=== PATIENT | female | born 1940 | race Caucasian/White ===

== ENCOUNTER → 2017-08-09 | Day surgery (SDC) | payer MEDICARE, BC ==
[2017-08-09 07:20] VITALS: RESP 16; BMI 27.4
--- NOTE | 2017-08-09 08:34 | PCN ---
PROCEDURE NOTE DATE OF SERVICE: 08/09/2017 PREPROCEDURE DIAGNOSIS: Left breast mammographic abnormality, located in the lateral mid breast. PROCEDURE: Stereotactic core biopsy. SURGEON: Val Seo MD ANESTHESIA: 1% lidocaine. INDICATIONS: The patient is a 77-year-old white female who underwent a bilateral mammogram and was noted to have a lesion in the left breast in the lateral mid portion of the breast. The patient on physical examination had no supraclavicular, cervical, axillary adenopathy of concern. Multiple positional exam of each breast, no dominant mass or nodules of concern. PROCEDURE: She was placed on the stereotactic table and the lesion was approached from lateral to medial. After this was localized and stereo coordinates were obtained, the skin was prepped using Betadine and 1% lidocaine was used to anesthetize the area of concern. A vacuum assisted 9-gauge needle was driven to the correct coordinates. Multiple core biopsies were then obtained of the area of concern. No microcalcifications were in the specimen and therefore radiograph of the specimen was not obtained. Following procuring of the specimen, a secure raul clip was placed. Radiograph was performed which confirmed the correct location of the clip. It should be noted that pre-fire and post-fire films were obtained prior to obtaining the sample. The specimen was sent to pathology. The patient was given an appointment to follow up with Dr. Pollard as an outpatient. The patient tolerated the procedure in stable condition. MMODL / IJN: [id number] /
[2017-08-09 11:17] VITALS: BP 133/78; PULSE 65; TEMP 97.9
--- NOTE | 2017-08-09 16:49 | MM ---
EXAMINATION TYPE: MG stereo VAD BX LT DATE OF EXAM: 08/09/2017 COMPARISON: 07/12/2017 and 07/27/2017 CLINICAL HISTORY: 77-year-old female abnormal mammogram, referred for stereotactic core needle biopsy for focal asymmetry. TECHNIQUE: Stereotactic guided core biopsy of the left breast. FINDINGS: The procedure of stereotactic guided core biopsy was explained to the patient. Benefits, a lternatives, and risks were discussed. An informed consent was then obtained. The [facility] pathway for biopsy was chosen. [facility] pathway was a lateral approach. I performed t he localization, then surgeon, Dr. Atul Perez performed the remainder of the procedure. A vacuum ass isted biopsy gun was used to obtain multiple core samples. The patient tolerated the procedure well without any immediate complication. The patient was kept in the radiology department for short stay after the procedure and then discharged home in stable condi tion. Specimen mammograms are not obtained as the target lesion was a focal asymmetry. Post biopsy mammogra m shows the clip to appear in satisfactory position relative to the targeted area of concern on the p reprocedure images. IMPRESSION: SUCCESSFUL, UNCOMPLICATED STEREOTACTIC GUIDED CORE BIOPSY OF 3:00 LEFT BREAST FOCAL ASYMMETRY; FULL P ATHOLOGY RESULTS TO FOLLOW.
== END ==
LOC: RADMAMWWP 06:54
PROVIDERS: ATTEND Surgery
DX: C50.912 Malignant neoplasm of unspecified site of left female breast (principal); Z88.0 Allergy status to penicillin
CPT/HCPCS: 88305; 88341; 88342

== ENCOUNTER → 2017-10-25 | Outpatient (CLI) | payer MEDICARE, BC ==
--- NOTE | 2017-10-25 12:24 | BD ---
EXAMINATION TYPE: MG DEXA axial skeleton. DATE OF EXAM: 10/25/2017 CLINICAL HISTORY: Height: 63 inches Weight: 155 FRAX RISK QUESTIONS: Alcohol (3 or more units per day): no Family History (Parent hip fracture): no Glucocorticoids (More than 3mos): no (Ex: prednisone, prednisolone, methylprednisolone, dexamethasone, and hydrocortisone). History of Fracture in Adulthood: no Secondary Osteoporosis: 1. Type 1 Diabetes: no 2. Hyperthyroidism: no 3. Menopause before 45: no 4. Malnutrition: no 5. Chronic liver disease: no Rheumatoid Arthritis: no Current Tobacco Use: no RISK FACTORS HISTORY OF: Family History of Osteoporosis: undocumented Active: yes Diet low in dairy products/other sources of calcium: dairy allergy Postmenopausal woman: yes Take estrogen and/or progesterone medications: not now How lon years on hormonal contraceptives; over 5 years using hormones Lost more than 2 inches in height since high school: no Frequent falls: no Poor Health: recent breast CA Hyperparathyroidism: no Adrenal Insufficiency: no MEDICATIONS: Prednisone or other steroids: no Thyroid Medications: no Osteoporosis Medications: no Additional Medications: generic antineoplastic (2 weeks) Additional History: breast CA 2017 EXAM MEASUREMENTS: Bone mineral densitometry was performed using the [employer]. Bone mineral density as measured about the Lumbar spine is: ----- L1-L4(G/cm2): 1.126 T Score Values are as follows: ----- L2: -0.7 ----- L3: 0.0 ----- L4: 0.0 ----- L1-L4: -0.5 Bone mineral density not previously done at this facility; done previously at physician office Bone mineral density about the R hip (g/cm2): 0.820 Bone mineral density about the L hip (g/cm2): 0.822 T Score values are as follows: -----R Neck: -1.6 -----L Neck: -1.6 -----R Total: -0.2 -----L Total: -0.4 Bone mineral density not previously done at this facility; done previously at physician office IMPRESSION: No evidence for osteoporosis or osteopenia. NOTE: T-SCORE=SD OF THE YOUNG ADULT MEAN.
== END | disposition home or self-care (01) ==
LOC: RADBDWWP 09:43
PROVIDERS: ATTEND Internal Medicine Hematology & Oncology
DX: C50.812 Malignant neoplasm of overlapping sites of left female breast (principal); N95.1 Menopausal and female climacteric states; Z79.890 Hormone replacement therapy
CPT/HCPCS: 77080

== ENCOUNTER → 2017-10-27 | Outpatient (CLI) | payer MEDICARE, BC ==
[2017-10-27 14:52] LABS: HCT 46.3 % (34.0-46.0); Hypochromasia Slight; MCH 29.6 pg (25.0-35.0); MCHC 31.2 g/dL (31.0-37.0); MCV 94.9 fL (80.0-100.0); Mean Platelet Volume 7.3; Platelet Count 215 k/uL (150-450); RBC 4.88 m/uL (3.80-5.40); RDW 13.6 % (11.5-15.5); WBC 5.5 k/uL (3.8-10.6)
[2017-10-27 15:04] LABS: HGB 14.4 gm/dL (11.4-16.0)
== END | disposition home or self-care (01) ==
LOC: LABWHC1 13:53
PROVIDERS: ATTEND Surgery
DX: D64.9 Anemia, unspecified (principal)
CPT/HCPCS: 36415; 85027

== ENCOUNTER → 2018-06-26 | Outpatient (CLI) | payer MEDICARE, BC ==
[2018-06-26 09:14] VITALS: BP 133/80; PULSE 57; TEMP 98; BMI 25.7
--- NOTE | 2018-06-26 10:05 | P.GSHP ---
History of Present Illness H&P Date: 06/26/18 The patient is a 78-year-old white female who is status post a left breast mastectomy on [id number]. On 09-08-17 she was taken back to surgery for bleeding and a hematoma. 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 The patient was recommended to undergo anti-hormonal therapy but did not receive chemotherapy. She also did not receive radiation therapy. The patient is unsure when her last right breast mammogram was done but about one year ago. No complaints related to the chest wall or the right breast. Er+, Pr+, Her 2 -. Family History: 1. mother: brain at 64 2. father: blood disease at 96 Hormonal History: menarche: 13 : 3, 1 [place], first at 21, breast fed: yes menopause: 55 BCP: 12 years Hormones: estrogen: 22 years Past surgical history: 1. Left breast mastectomy, return to surgery for bleeding 2. cholcystectomy 3. tonsil 4. cataract bilateral Past medical history: 1. Reflux 2. Diarrhea intermittent constipation Social History: smoke: none Alcohol: Negative Drugs: Negative - Constitutional Comment: hot flashes related to anestrazole Constitutional: Denies chills, Denies fever - EENT Eyes: denies decreased vision, denies pain Ears: deny: decreased hearing, tinnitus Ears, nose, mouth and throat: Denies headache, Denies sore throat - Breasts Breasts: bilateral: as per HPI - Cardiovascular Cardiovascular: Denies chest pain, Denies shortness of breath - Respiratory Respiratory: Denies cough, Denies 7 - Gastrointestinal Comment: reflux, scheduled for colonoscopy and EGD Gastrointestinal: Reports constipation, Reports diarrhea - Genitourinary (Female) Genitourinary: Denies dysuria, Denies hematuria - Menstruation Menstruation: Reports postmenopausal - Musculoskeletal Comment: osteoarthritis - Integumentary Comment: lichen sclerosus - Neurological Neurological: Denies numbness, Denies weakness - Psychiatric Psychiatric: Reports anxiety, Reports depression - Endocrine Endocrine: Reports weight change, Denies fatigue - Hematologic/Lymphatic Comment: none, vitamin E, Mobic - Allergic/Immunologic Allergic/Immunologic: Reports as per HPI, Reports seasonal allergies Past Medical History Past Medical History: Cancer Additional Past Medical History / Comment(s): L Breast CA History of Any Multi-Drug Resistant Organisms: None Reported Past Surgical History: Cholecystectomy, Tonsillectomy Additional Past Surgical History / Comment(s): Cataract surgery-bilateral Past Anesthesia/Blood Transfusion Reactions: Motion Sickness Past Psychological History: Anxiety Smoking Status: Never smoker Past Alcohol Use History: None Reported Past Drug Use History: None Reported - Past Family History Mother Family Medical History: Cancer Additional Family Medical History / Comment(s): Brain CA Medications and Allergies Home Medications Medication Instructions Recorded Confirmed Type Cholecalciferol [Vitamin D3] 2,000 unit PO DAILY 08/08/17 06/26/18 History Evening Wright Oil 1,000 mg PO DAILY 08/08/17 06/26/18 History Fexofenadine HCl [Virgie Allergy] 180 mg PO DAILY 08/08/17 06/26/18 History Meloxicam [Mobic] 7.5 mg PO HS 08/08/17 06/26/18 History Sertraline [Zoloft] 100 mg PO HS 08/08/17 06/26/18 History Vitamin E (Dl,Tocopheryl Acet) 800 unit PO DAILY 08/08/17 06/26/18 History [Vitamin E] ALPRAZolam [Xanax] 0.5 mg PO HS PRN 09/06/17 09/08/17 History Ferrous Fumarate/Ascorbic Acid 1 each PO DAILY #30 tablet.er 09/10/17 06/26/18 Rx [Sabas-Sequels 65-25 mg Caplet] Allergies Allergy/AdvReac Type Severity Reaction Status Date / Time Penicillins Allergy Unknown Verified 09/08/17 12:10 Childhood egg AdvReac Intermediate Nausea Verified 09/08/17 12:10 gluten AdvReac Intermediate Unknown Verified 09/08/17 12:10 Milk Containing Products AdvReac Intermediate Nausea Verified 09/08/17 12:10 [Dairy] Surgical - Exam Vital Signs Temp Pulse BP Pulse Ox 98 F 57 L 133/80 100 06/26/18 08:54 06/26/18 08:54 06/26/18 08:54 06/26/18 08:54 - General well developed, well nourished, no distress - Eyes normal ocular movement - ENT no hearing loss, no congestion - Neck no masses, trachea midline - Respiratory normal expansion, normal respiratory effort, clear to percussion, clear to auscultation - Cardiovascular Rhythm: regular Heart Sounds: normal: S1, S2 - Abdomen Abdomen: soft, non tender, no guarding, no rigid, no rebound - Integumentary no rash, no abnormal pigmentation - Neurologic no disoriented, no combative - Musculoskeletal normal gait, normal posture - Psychiatric oriented to time, oriented to person, oriented to place, speech is normal, memory intact Breast examination: Right breast: Multi-positional exam no dominant masses or nodules of concern Right axilla: No adenopathy of concern Left chest wall: No evidence of recurrent disease Left axilla: No adenopathy of concern Assessment and Plan Assessment: Impression: 1. left breast T1N1M0 treated with left breast mastectomy, anastrozole, no radiation, no chemotherapy 2. anxiety 3. Osteoporosis 4. Intermittent diarrhea constipation Plan: 1. Continue surveillance regarding left breast cancer 2. Patient due for right breast mammogram 3. Medical management of medical conditions 4. Colonoscopy in near future 5. follow up after mammogram 6. follow up in three months CC: Dr. Kelley, Dr. Simmons
== END ==
LOC: WWCBREAST 08:44
PROVIDERS: ATTEND Surgery
DX: Z53.9 Procedure and treatment not carried out, unspecified reason (principal)

== ENCOUNTER → 2018-07-13 | Outpatient (CLI) | payer MEDICARE, BC ==
--- NOTE | 2018-07-13 14:18 | MM ---
Reason for exam: additional evaluation requested from prior study. Last mammogram was performed 16 years and 1 month ago. History: Patient is postmenopausal and has history of breast cancer at age 77. Mastectomy of the left breast, September 06, 2017. Malignant MG stereo VAD BX LT of the left breast, August 09, 2017. Took estrogen for 10 years. Took progesterone for 10 years. Taking antineoplastic beginning at age 77. Physical Findings: Nurse did not find any significant physical abnormalities on exam. MG 3D Diag Mammo W/Cad RT CC, MLO, LM, spot compression MLO, spot compression CC, and CCRL with magnification view(s) were taken of the right breast. Prior study comparison: July 27, 2017, mammogram, performed at [facility]. July 12, 2017, mammogram, performed at [facility]. June 10, 2016, mammogram, performed at [facility]. The breast tissue is heterogeneously dense. This may lower the sensitivity of mammography. Right lateral focal asymmetry improves on additional views and appears as fiborglandular. These results were verbally communicated with the patient and result sheet given to the patient on 07/13/18. ASSESSMENT: Benign, BI-RAD 2 RECOMMENDATION: Follow-up diagnostic mammogram of the right breast in 1 year.
== END | disposition home or self-care (01) ==
LOC: RADMAMWWP 12:49
PROVIDERS: ATTEND Surgery
DX: Z08 Encounter for follow-up examination after completed treatment for malignant neoplasm (principal); Z85.3 Personal history of malignant neoplasm of breast
CPT/HCPCS: 77065; G0279; 77061

== ENCOUNTER 2018-07-19 08:03 | Day surgery (SDC) | payer MEDICARE, BC ==
[2018-07-17 10:27] VITALS: BMI 25.7
[~2018-07-19 08:03] MED LIST: HYDROmorphone 1 MG/ML 1 ML SYRINGE IVP PRN
[2018-07-19] MEDS ORDERED: LIDOCAINE 1% 20 ML VIAL (10MG/ML) FOR IV START INTRADERMA ONE (08:46)
[2018-07-19] MEDS: LACTATED RINGERS 1,000 ML IV SCH ×2 (08:50→09:24)
[2018-07-19 08:52] VITALS: RESP 16; TEMP 97.9
[2018-07-19] MEDS ORDERED: LIDOCAINE 1% INJ 10MG/ML (20 ML MDV) ONE (09:26)
[2018-07-19] MEDS ORDERED: PROPOFOL 10 MG/ML 20 ML VIAL IV ONE (09:26)
--- NOTE | 2018-07-19 09:44 | P.PCN ---
Date of Procedure: 07/19/18 Procedure(s) Performed: Brief history: Patient is a pleasant 78-year-old pleasant white female scheduled for an elective upper endoscopy as well as colonoscopy as a part of evaluation of GERD/ screening for colon neoplasia Procedure performed: Esophagogastroduodenoscopy with biopsy Colonoscopy Preoperative diagnosis: Long-standing history of GERD Screening for colon cancer Anesthesia: MAC Procedure: After informed consent was obtained from the patient was brought into the endoscopy unit and IV sedation was administered by anesthesia under continuous monitoring. Initially upper endoscopy was done. The Olympus GF 160 video endoscope was inserted inserted into the mouth and esophagus intubated without any difficulty and was gradually advanced into the stomach and duodenum and carefully examined. The bulb and second part of the duodenum appeared normal. The scope was then withdrawn into the stomach adequately insufflated with air and upon careful examination the antrum had patchy areas of erythema consistent with gastritis and biopsies were done from this area. The body, cardia and fundus appeared normal. The scope was then withdrawn into the esophagus. The GE junction was located at 40 cm to the incisors. It appeared regular with no erythema erosions or ulcerations. Rest of the esophagus appeared normal. Patient tolerated the procedure well. At this time the patient continued to remain sedation. Initial digital rectal examination was normal. Olympus CF 160 video colonoscope was then inserted into the rectum and gradually advanced to the cecum without any difficulty. Careful examination was performed as the scope was gradually being withdrawn. The prep was excellent. The cecum, ascending colon, transverse colon, descending colon, sigmoid colon and rectum appeared normal. Retroflexion was performed in the rectum and no lesions were noted. Patient tolerated the procedure well. Impression: 1. Upper endoscopy revealed mild antral gastritis but no evidence of esophagitis or Vega's esophagus 2. Colonoscopy is within normal limits with no evidence of colitis or colorectal neoplasia Recommendations: Findings of this examination were discussed with the patient as well as well as her family. She was advised to follow with the biopsy results. She can use [id number] H2 blockers needed for the GERD symptoms.
[2018-07-19 10:05] VITALS: PULSE 68
[2018-07-19 10:20] VITALS: BP 126/80
== END 2018-07-19 10:42 | disposition home or self-care (01) ==
LOC: ORWHC2ENDO 08:03
PROVIDERS: ATTEND Internal Medicine Gastroenterology
DX: Z12.11 Encounter for screening for malignant neoplasm of colon (principal); K29.50 Unspecified chronic gastritis without bleeding; F39 Unspecified mood [affective] disorder; Z79.1 Long term (current) use of non-steroidal anti-inflammatories (NSAID); Z79.899 Other long term (current) drug therapy; Z88.0 Allergy status to penicillin; Z91.011 Allergy to milk products
CPT/HCPCS: 88305; 43239; J2001; J2704; G0121; 45378

== ENCOUNTER → 2019-01-04 | Outpatient (CLI) | payer MEDICARE, BC ==
[2019-01-04 09:49] VITALS: BP 151/86; PULSE 76; RESP 16; TEMP 98.2; BMI 27.4
--- NOTE | 2019-01-04 10:18 | P.PN ---
Subjective Progress Note Date: 01/04/19 Principal diagnosis: Status post left mastectomy for T1 N1 M0 breast cancer, done 2017 Mirian is a 78-year-old white female status post left mastectomy T1 N1 M0 2016. She received anastrozole. No radiation and no chemotherapy. Her last mammogram was in June 2018. This was felt to be benign BIRADS 2 and she is scheduled for a repeat mammogram in June 2019. The patient has no complaints of any lumps or masses in her breast. The patient does complain of some tightening on her left chest wall/axilla. Patient was seen by Dr. Love and referred to physical therapy. Family History: 1. mother: brain at 64 2. father: blood disease at 96 History: Menarche: 13 Pregnancies: She 3, P, first at 21, press-fit: Yes Menopause: 55 Controlled was: 12 years Hormones: Estrogen 22 years Past surgical history: 1. Left breast mastectomy with return to surgery for postoperative bleeding 2. Cholecystectomy 3. Tonsillectomy 4. Bilateral cataract surgery Past medical history: 1. Reflux 2. Intermittent diarrhea constipation Social history: Smoke: Negative Alcohol: Negative Drugs: Negative Review of systems: HEENT negative Lungs: Negative Heart: Negative GI as stated negative Musculoskeletal: Osteoarthritis Neurologic: Negative Skin: Lichen sclerosis Psychiatric: Negative Endocrine: Negative Bleeding:vitamen E and mobic Objective - Vital Signs Vital signs: Vital Signs Temp 98.2 F 01/04/19 09:42 Pulse 76 01/04/19 09:42 Resp 16 01/04/19 09:42 BP 151/86 01/04/19 09:42 Pulse Ox 99 01/04/19 09:42 Intake & Output 01/03/19 01/04/19 01/04/19 18:59 06:59 18:59 Weight 68.039 kg - Exam BMI 27.4 - Constitutional General appearance: Present: average body habitus - EENT Eyes: Present: EOMI ENT: Present: hearing grossly normal - Neck Neck: Present: normal ROM - Respiratory Respiratory: bilateral: CTA - Cardiovascular Rhythm: regular Heart sounds: normal: S1, S2 - Gastrointestinal General gastrointestinal: Present: soft - Integumentary Integumentary: Present: normal turgor - Musculoskeletal Musculoskeletal: Present: gait normal - Psychiatric Psychiatric: Present: A&O x's 3, appropriate affect - Additional findings Additional findings: breast exam: Right breast: Multi-positional exam fibrocystic changes, no dominant masses or nodules of concern Right axilla: No adenopathy of concern Left breast: Status post mastectomy, chest wall no evidence of recurrent disease Patient has good mobility of the left arm however feels tightness in this area and is seeing a physical therapist Left axilla: No adenopathy of concern Assessment and Plan Plan: Impression: 1. Left breast T1 N1 M0 breast cancer treated with left mastectomy, patient is presently on anastrozole, no radiation no chemotherapy 2. Anxiety patient on Zoloft 3. Osteoporosis 4. Intermittent diarrhea constipation she is lactose intolerant in is careful about her of milk intake Plan: 1. Continue surveillance regarding left breast cancer with follow-up appointment in 6 months 2. Right breast mammogram in 6 months 3. Medical management of medical conditions 4. Patient's last colonoscopy was in the fall was told everything was okay. 5. Medical management of medical conditions 6. Physical therapy left shoulder Cc: Dr. Kelley, Dr. Love
== END | disposition home or self-care (01) ==
LOC: WWCWWP 09:33
PROVIDERS: ATTEND Surgery
DX: Z53.9 Procedure and treatment not carried out, unspecified reason (principal)

== ENCOUNTER → 2019-07-16 | Outpatient (CLI) | payer MEDICARE, BC ==
--- NOTE | 2019-07-16 11:15 | MM ---
Reason for exam: additional evaluation requested from prior study. Last mammogram was performed 1 year ago. History: Patient is postmenopausal and has history of breast cancer at age 77. Mastectomy of the left breast, September 06, 2017. Malignant MG stereo VAD BX LT of the left breast, August 09, 2017. Took hormonal contraceptives for 12 years. Took estrogen for 10 years. Took progesterone for 10 years. Taking antineoplastic beginning at age 77. Physical Findings: Nurse did not find any significant physical abnormalities on exam. MG 3D Diag Mammo W/Cad RT CC and MLO view(s) were taken of the right breast. Prior study comparison: July 13, 2018, right breast MG 3d diag mammo w/cad RT. July 27, 2017, mammogram, performed at [facility]. There are scattered fibroglandular densities. Benign calcifications. No significant new findings when compared with previous films. These results were verbally communicated with the patient and result sheet given to the patient on 07/16/19. ASSESSMENT: Benign, BI-RAD 2 RECOMMENDATION: Follow-up diagnostic mammogram of the right breast in 1 year.
== END | disposition home or self-care (01) ==
LOC: RADMAMWWP 08:58
PROVIDERS: ATTEND Surgery
DX: Z08 Encounter for follow-up examination after completed treatment for malignant neoplasm (principal); Z85.3 Personal history of malignant neoplasm of breast; Z90.12 Acquired absence of left breast and nipple
CPT/HCPCS: 77065; G0279; 77061

== ENCOUNTER → 2020-07-17 | Outpatient (CLI) | payer MEDICARE, BC ==
--- NOTE | 2020-07-17 11:03 | MM ---
Reason for exam: additional evaluation requested from prior study. Last mammogram was performed 1 year ago. History: Patient is postmenopausal and has history of breast cancer at age 77. Mastectomy of the left breast, September 06, 2017. Malignant MG stereo VAD BX LT of the left breast, August 09, 2017. Took hormonal contraceptives for 12 years. Took estrogen for 11 years. Took progesterone for 11 years. Taking antineoplastic beginning at age 77. Physical Findings: Nurse did not find any significant physical abnormalities on exam. MG 3D Diag Mammo W/Cad RT CC, MLO, and XCCM view(s) were taken of the right breast. Prior study comparison: July 16, 2019, right breast MG 3d diag mammo w/cad RT. July 13, 2018, right breast MG 3d diag mammo w/cad RT. The breast tissue is heterogeneously dense. This may lower the sensitivity of mammography. Benign appearing calcifications in the right breast. No significant new findings when compared with previous films. These results were verbally communicated with the patient and result sheet given to the patient on 07/17/20. ASSESSMENT: Benign, BI-RAD 2 RECOMMENDATION: Follow-up diagnostic mammogram of the right breast in 1 year.
== END | disposition home or self-care (01) ==
LOC: RADMAMWWP 09:56
PROVIDERS: ATTEND Family Medicine
DX: C50.512 Malignant neoplasm of lower-outer quadrant of left female breast (principal)
CPT/HCPCS: 77065; G0279; 77061

== ENCOUNTER → 2020-10-15 | Outpatient (CLI) | payer MEDICARE, BC ==
--- NOTE | 2020-10-21 13:02 | HM ---
This is a report on 3 day Holter monitor starting October 15. Baseline EKG showed sinus rhythm with first-degree heart block. Patient to remind in sinus rhythm with an average heart rate of about 70 and a minimum of 50 and maximum about 131. Patient had occasional APCs and rare PVCs. No sustained arrhythmias are noted. Patient complained of fast heartbeat on few occasions, not correlated with any cardiac events. Final impression #1. Sinus rhythm. #2. Occasional APCs. #3. Occasional PVCs #4. Patient's symptoms of fast heartbeat did not correlate with any cardiac events. [facility]
== END | disposition home or self-care (01) ==
LOC: RADECHMAIN 11:28
PROVIDERS: ATTEND Family Medicine
DX: I49.3 Ventricular premature depolarization (principal); I49.1 Atrial premature depolarization
CPT/HCPCS: 93225; 93226

== ENCOUNTER → 2021-08-03 | Outpatient (CLI) | payer MEDICARE, BC ==
--- NOTE | 2021-08-03 11:35 | MM ---
Reason for exam: additional evaluation requested from prior study. Last mammogram was performed 1 year and 1 month ago. History: Patient is postmenopausal and has history of breast cancer at age 77. Mastectomy of the left breast, September 06, 2017. Malignant MG stereo VAD BX LT of the left breast, August 09, 2017. Took hormonal contraceptives for 12 years. Took estrogen for 11 years. Took progesterone for 11 years. Taking antineoplastic for 8 months beginning at age 77. Physical Findings: Nurse did not find any significant physical abnormalities on exam. MG 3D Diag Mammo W/Cad RT CC and MLO view(s) were taken of the right breast. Prior study comparison: July 17, 2020, right breast MG 3d diag mammo w/cad RT. July 16, 2019, right breast MG 3d diag mammo w/cad RT. There are scattered fibroglandular densities. No significant new findings when compared with previous films. These results were verbally communicated with the patient and result sheet given to the patient on 08/03/21. ASSESSMENT: Benign, BI-RAD 2 RECOMMENDATION: Follow-up diagnostic mammogram of the right breast in 1 year.
== END | disposition home or self-care (01) ==
LOC: RADMAMWWP 10:43
PROVIDERS: ATTEND Family Medicine
DX: R92.2 Inconclusive mammogram (principal); Z85.3 Personal history of malignant neoplasm of breast
CPT/HCPCS: 77065; G0279; 77061

== ENCOUNTER → 2022-08-09 | Outpatient (CLI) | payer MEDICARE ==
--- NOTE | 2022-08-09 14:47 | MM ---
Reason for Exam: Hx of breast cancer, mastectomy. Last screening mammogram was performed 12 month(s) ago. Patient History: Menarche at age 12. First Full-Term at age 21. Postmenopausal. Patient has history of breast feeding. Breast cancer, left, age 77. Patient used Estrogen for 11 years. Patient used Progesterone for 11 years. Patient used Hormonal Contraceptives for 12 years. 09/06/2017, Mastectomy on the Left side. 08/09/2017, Malignant Core Biopsy on the left side. Prior Study Comparison: 06/26/1987 Screening Mammogram, Unknown. 11/28/1996 Screening Mammogram, Unknown. 05/19/2000 Left Special View Mammogram, [facility]. 05/31/2001 Bilateral Screening Mammogram, [facility]. 06/05/2002 Bilateral Screening Mammogram, [facility]. 06/10/2016 Screening Mammogram, [facility]. 07/12/2017 Screening Mammogram, [facility]. 07/27/2017 Screening Mammogram, [facility]. 07/13/2018 Right Diagnostic Mammogram, [facility]. 07/16/2019 Right Diagnostic Mammogram, [facility]. 07/17/2020 Right Diagnostic Mammogram, [facility]. 08/03/2021 Right Diagnostic Mammogram, [facility]. Tissue Density: Right: The breast tissue is heterogeneously dense. This may lower the sensitivity of mammography. Findings: Analyzed By CAD. No discrete mass or suspicious clustered microcalcifications. Overall Assessment: Benign, BI-RAD 2 Management: Diagnostic Mammogram of the right breast in 1 year. A clinical breast exam by your physician is recommended on an annual basis and results should be correlated with mammographic findings. This exam should not preclude additional follow-up of suspicious palpable abnormalities. Results were given to the patient verbally at the time of exam. Electronically signed and approved by: Radu Shaw M.D. [facility]
== END | disposition home or self-care (01) ==
LOC: RADMAMWWP 14:19
PROVIDERS: ATTEND Family Medicine
DX: Z85.3 Personal history of malignant neoplasm of breast (principal); Z78.0 Asymptomatic menopausal state
CPT/HCPCS: 77065; G0279; 77061

== ENCOUNTER → 2023-08-16 | Outpatient (CLI) | payer MEDICARE ==
--- NOTE | 2023-08-16 09:13 | MM ---
Reason for Exam: Hx of breast cancer, mastectomy. Last screening mammogram was performed 12 month(s) ago. Patient History: Menarche at age 12. First Full-Term at age 21. Postmenopausal. Patient has history of breast feeding. Breast cancer, left, age 77. Patient used Estrogen for 11 years. Patient used Progesterone for 11 years. Patient used Hormonal Contraceptives for 12 years. 09/06/2017, Mastectomy on the Left side. 08/09/2017, Malignant Core Biopsy on the left side. Prior Study Comparison: 07/17/2020 Right Diagnostic Mammogram, [facility]. 08/03/2021 Right Diagnostic Mammogram, [facility]. 08/09/2022 Right MG 3D diag mammo w/cad RT, [facility]. Tissue Density: Right: There are scattered fibroglandular densities. Findings: Analyzed By CAD. Pattern appears stable. Chronic nodularities in the outer right breast. Benign calcifications within the right breast. No suspicious groups of microcalcifications, spiculated or lobular masses, architectural distortion or other secondary signs of malignancy are mammographically apparent. Overall Assessment: Benign, BI-RAD 2 Management: Screening Mammogram of the right breast in 1 year. A negative mammogram report should not preclude additional follow up of suspicious palpable abnormalities. Patient should continue monthly self breast exam. A clinical breast exam by your physician is recommended on an annual basis and results should be correlated with mammographic findings. Electronically signed and approved by: Luis Carlos Khan D.O. Radiologis
== END | disposition home or self-care (01) ==
LOC: RADMAMWWP 08:48
PROVIDERS: ATTEND Family Medicine
DX: R92.321 Mammographic fibroglandular density, right breast (principal); Z85.3 Personal history of malignant neoplasm of breast; Z78.0 Asymptomatic menopausal state
CPT/HCPCS: 77065; G0279; 77061

== ENCOUNTER → 2024-04-09 | Outpatient (CLI) | payer MEDICARE ==
[2024-04-09 14:48] VITALS: BP 144/74; PULSE 72; RESP 16; TEMP 97.6
--- NOTE | 2024-04-09 15:33 | P.SLEEP ---
History of Present Illness DATE: 04/09/2024 CONSULTATION/NEW PATIENT EVALUATION HISTORY OF PRESENT ILLNESS/SLEEP-WAKE EVALUATION: 83-year-old lady had been evaluated in the sleep center for possible obstructive sleep apnea hypopnea syndrome. SLEEP SCHEDULE: Usually sleep schedule from 11 PM to 58 AM. FALLING ASLEEP: Patient does have problems with falling asleep, takes medication at bedtime to help her to fall asleep. DURING SLEEP: Patient sleeps by herself for many years, so no information about snoring. Patient wakes up from sleep several times with 2 episodes of using restroom. Sometimes she has episodes of leg cramps. No history of hypnogogical hallucinations, sleep paralysis, or cataplexy. DURING THE DAY/WAKE STATE: In the morning patient wake up tired, has problems with memory.. [place] sleepiness scale is 2. Patient does not take naps. PAST MEDICAL HISTORY: Anxiety, acid reflux, allergic rhinitis. PAST SURGICAL HISTORY: Bilateral surgery for cataract, cholecystectomy. MEDICATIONS: Please see below. SOCIAL HISTORY: Please see below. FAMILY HISTORY: Hypertension, hyperlipidemia, cancer, snoring, diabetes. REVIEW OF SYSTEMS: Awakenings from sleep with nocturia. No fevers. No double vision. No recent chest pain. No shortness of breath. No abdominal pain. No bleeding episodes. No blood in urine. No seizure episodes. PHYSICAL EXAMINATION: GENERAL: A pleasant patient without any distress. VITAL SIGNS: Please see below, weight 158 pounds, BMI 28.8. HEENT: PERRLA, EOMI. Evaluation of oropharynx showed tongue protrudes midline, low position of soft palate Mallampati 3. NECK: Supple. No JVD. Thyroid is not palpable. 13.5 inches in circumference. LUNGS: Clear to percussion and to auscultation. Good air exchange. No wheezing or rhonchi. HEART: S1, S2 regular. No murmurs, gallops or rubs. ABDOMEN: Soft and nontender. Bowel sounds are present. No organomegaly appreciated. EXTREMITIES: No clubbing or cyanosis. SKIP HOIST ENGINEER: Awake, alert, and oriented x3. Cranial nerves 2 to 7 intact. There is no fasciculation or atrophy noted. No focal deficits observed. ASSESSMENT: 1. Awakenings from sleep with nocturia, low position of soft palate Mallampati 3. Possible obstructive sleep apnea hypopnea syndrome. 2. Insomnia with difficulties to initiate sleep. 3. Episodes of leg cramps. 4. History of anxiety. 5 acid reflux. 6 . Allergic rhinitis. 7. Status post bilateral cataract surgery. 8. Status post cholecystectomy. PLAN: 1. Polysomnography for evaluation of patient's breathing during sleep. 2. Following plan after reading sleep study. 3. Preferable position during sleep on the side. 4. No driving if patient feels any sleepiness. Patient is aware of civil and criminal liability for unsafe driving. 5. Sleep hygiene with regular sleep time for at least 7.5-8 hours. 6. Watching weight. Thank you very much for referring this patient for consultation. Sincerely, Los Esquivel MD, PhD, FAASM. Diplomat of [place] [employer], Sleep Medicine Board by [place] [employer] [place] [employer] Diabetes Trainer of [facility] [place] Maurice Richter MD Past Medical History Past Medical History: Cancer Additional Past Medical History / Comment(s): L Breast CA History of Any Multi-Drug Resistant Organisms: None Reported Past Surgical History: Cholecystectomy, Tonsillectomy Additional Past Surgical History / Comment(s): Cataract surgery-bilateral Past Anesthesia/Blood Transfusion Reactions: Motion Sickness Past Psychological History: Anxiety Smoking Status: Never smoker Past Alcohol Use History: None Reported Past Drug Use History: None Reported - Past Family History Mother Family Medical History: Cancer, Diabetes Mellitus, Osteoarthritis (OA) Additional Family Medical History / Comment(s): Brain CA Father Family Medical History: Asthma, Diabetes Mellitus, GERD/Reflux, Hyperlipidemia, Hypertension, Osteoarthritis (OA) Additional Family Medical History / Comment(s): snoring Medications and Allergies Home Medications Medication Instructions Recorded Confirmed Type Cholecalciferol [Vitamin D3] 2,000 unit PO DAILY 08/08/17 04/09/24 History Evening [place] Oil 1,000 mg PO DAILY 08/08/17 01/04/19 History Fexofenadine HCl [Virgie Allergy] 180 mg PO DAILY 08/08/17 04/09/24 History Meloxicam [Mobic] 7.5 mg PO HS 08/08/17 04/09/24 History Sertraline [Zoloft] 100 mg PO HS 08/08/17 04/09/24 History Vitamin E (Dl,Tocopheryl Acet) 800 unit PO DAILY 08/08/17 04/09/24 History [Vitamin E] ALPRAZolam [Xanax] 0.5 mg PO HS PRN 09/06/17 04/09/24 History Biotin [Yxaa-Ndlm-Ymqny] 10,000 mcg PO DAILY 04/09/24 04/09/24 History Zinc Gluconate [Zinc] 50 mg PO DAILY 04/09/24 04/09/24 History Allergies Allergy/AdvReac Type Severity Reaction Status Date / Time Penicillins Allergy Unknown Verified 01/04/19 09:49 Childhood egg AdvReac Intermediate Nausea Verified 01/04/19 09:49 gluten AdvReac Intermediate Unknown Verified 01/04/19 09:49 Milk Containing Products AdvReac Intermediate Nausea Verified 01/04/19 09:49 (Dairy) [Dairy] Physical Exam Vitals: Vital Signs Temp Pulse Resp BP Pulse Ox 04/09/24 14:48 97.6 F 72 16 144/74 99 Intake and Output 04/09/24 04/09/24 04/09/24 06:59 14:59 22:59 Other: Weight 71.668 kg Sleep Note - Sleep Data ESS Total: 2 - Sleep Note Sleep Note: Temperature: 97.6 F Pulse Rate: 72 Respiratory Rate: 16 Blood Pressure: 144/74 SpO2: 99 Height: 5 ft 2 in Weight: 71.668 kg BMI: Neck Circumference: 13.5
== END ==
LOC: 3 N SLEEP 13:44
PROVIDERS: ATTEND Internal Medicine
DX: R35.1 Nocturia (principal); G47.00 Insomnia, unspecified; K21.9 Gastro-esophageal reflux disease without esophagitis; F41.9 Anxiety disorder, unspecified; J30.9 Allergic rhinitis, unspecified; R25.2 Cramp and spasm; Z90.49 Acquired absence of other specified parts of digestive tract; Z98.890 Other specified postprocedural states; Z98.41 Cataract extraction status, right eye; Z98.42 Cataract extraction status, left eye; Z88.0 Allergy status to penicillin; Z91.012 Allergy to eggs; Z91.011 Allergy to milk products; Z91.018 Allergy to other foods
CPT/HCPCS: 99211

== ENCOUNTER 2024-05-15 19:21 | Outpatient (CLI) | payer MEDICARE ==
--- NOTE | 2024-05-16 12:00 | P.PCN ---
Description of Procedure: POLYSOMNOGRAPHY REPORT PROCEDURE(S)/DATE(S): Polysomnography 05/15/2024 CLINICAL: Patient has been seen in the sleep center for evaluation of obstructive sleep apnea-hypopnea syndrome. Please see my consultation. Sleep study has been done for evaluation of patient breathing during the sleep. PROCEDURE: The standard montage for clinical polysomnography included the electroencephalogram, the electrooculogram, the mentalis surface electromyography and Lead II cardiography. The respiratory battery consisted of measurements of nasal/buccal air flow, pressure transducer measurements from nose, thoracic and/or abdominal effort and intercostal surface electromyography. Video monitoring has been done to check for any parasomnia events. Nocturnal oxyhemoglobin saturations were obtained by finger oximetry. Step-mustafa titration with positive airway pressure was utilized to control the respiratory events, if necessary. RESULTS: During the diagnostic sleep study sleep efficiency was only 5.8%. Latency to sleep onset was extremely long 114.5 min. Sleep architecture showed stage NI only 100%. Respiratory channel showed no any abnormal respiratory events. Total apnea hypopnea index was 0. Heart rate was in the range between 50 and 67, average is 56 by computer calcula tion. EMG showed total 14 periodic limb movements. IMPRESSIONS: 1. Patient slept only 24 minutes, which does not allow to make any conclusions about respirations. Please see other impressions from consultation PLAN: 1. We will do home sleep apnea test. 2. No driving if feeling sleepiness. 3. Sleep hygiene with regular time in bed for at least 7-1/2 hours. Thank you very much for allowing me to participate in the management of your patient. Sincerely, Los Esquivel MD, PhD, FAASM. Diplomat of [place] [employer], Sleep Medicine Board by [place] [employer] Sas Analyst of [facility] [place]
== END 2024-05-16 05:45 | disposition home or self-care (01) ==
LOC: 3 N SLEEP 19:21
PROVIDERS: ATTEND Internal Medicine

== ENCOUNTER → 2024-08-27 | Outpatient (CLI) | payer MEDICARE ==
--- NOTE | 2024-08-27 22:19 | MM ---
Reason for Exam: Additional evaluation requested from prior study. Last mammogram was performed 1 year(s) and 1 month(s) ago. Patient History: Menarche at age 12. First Full-Term at age 21. Postmenopausal. Patient has history of breast feeding. Breast cancer, left, age 77. Patient used Estrogen for 11 years. Patient used Progesterone for 11 years. Patient used Hormonal Contraceptives for 12 years. 09/06/2017, Mastectomy on the Left side. 08/09/2017, Malignant Core Biopsy on the left side. Prior Study Comparison: 08/03/2021 Right Diagnostic Mammogram, [facility]. 08/09/2022 Right MG 3D diag mammo w/cad RT, [facility]. 08/16/2023 Right MG 3D diag mammo w/cad RT, [facility]. Tissue Density: Right: There are scattered areas of fibroglandular density. Findings: Analyzed By CAD. Pattern appears stable. No significant interval change is evident. Benign calcifications right breast No significant interval change No suspicious groups of microcalcifications, spiculated or lobular masses, architectural distortion or other secondary signs of malignancy are mammographically apparent. Overall Assessment: Benign, BI-RAD 2 Management: Screening Mammogram of the right breast in 1 year. A negative mammogram report should not preclude additional follow up of suspicious palpable abnormalities. Patient should continue monthly self breast exam. A clinical breast exam by your physician is recommended on an annual basis and results should be correlated with mammographic findings. Note on Sandra scores and lifetime risk: 1. A Sandra score greater than 3% is considered moderate risk. If this is the case, consider specialist referral to assess eligibility for a risk reducing agent. 2. If overall lifetime risk for the development of breast cancer is 20% or higher, the patient may qualify for future screening with alternating mammogram and breast MRI. [facility], , 08/27/2024 10:16 PM. Electronically signed and approved by: Luis Carlos Khan D.O. Radiologis
== END | disposition home or self-care (01) ==
LOC: RADMAMWWP 14:31
PROVIDERS: ATTEND Family Medicine
DX: Z85.3 Personal history of malignant neoplasm of breast (principal); Z78.0 Asymptomatic menopausal state; R92.321 Mammographic fibroglandular density, right breast
CPT/HCPCS: 77065; G0279; 77061